=== PATIENT | female | born 1990 | race Caucasian/White ===

== ENCOUNTER 2021-01-03 18:54 | Emergency (ER) | payer OTHER | END 2021-01-03 21:19 | disposition home or self-care (01) | LOC: FER 18:54 | DX: M79.645 Pain in left finger(s) (principal); E11.9 Type 2 diabetes mellitus without complications; W51.XXXA Accidental striking against or bumped into by another person, initial encounter; Y93.89 Activity, other specified | CPT/HCPCS: 73130 ==